=== PATIENT | male | born 1940 | race Caucasian/White ===

== ENCOUNTER → 2016-11-09 | Outpatient (CLI) | payer MEDICARE, BC | LOC: COL.RAD 12:14 | DX: M25.521 Pain in right elbow (principal) ==

== ENCOUNTER → 2016-11-14 | Outpatient (CLI) | payer MEDICARE, BC | LOC: COL.RAD 11:00 | DX: M25.521 Pain in right elbow (principal) | CPT/HCPCS: J3301; Q9967 ==